=== PATIENT | male | born 1985 | race Caucasian/White ===

== ENCOUNTER 2023-09-27 07:12 | Emergency (ER) | payer SELFPAY ==
[~2023-09-27] VITALS: Ht 170.1 cm; Wt 111.1 kg
[~2023-09-27 07:12] MED LIST: Motrin,Rufen800 MG PO; Orphenadrine C100 MG PO
[2023-09-27] MEDS ORDERED: RABIES IMMUNE GLOBULIN U RABIES IMMUNE GLOBULIN U IM ONE (07:40)
[2023-09-27] MEDS ORDERED: Rabies Immune Globulin 300 UNIT/2 ML VIAL IM ONE (07:40)
[2023-09-27] MEDS ORDERED: Rabies Vaccine 1 ML VIAL IM ONE (07:40)
[2023-09-27] MEDS ORDERED: SEPTDS PO (07:41)
== END 2023-09-27 08:10 | disposition home or self-care (01) ==
LOC: ED 07:12
DX: T63.481A Toxic effect of venom of other arthropod, accidental (unintentional), initial encounter (principal); F41.9 Anxiety disorder, unspecified; Z88.0 Allergy status to penicillin; Z88.1 Allergy status to other antibiotic agents; Z87.891 Personal history of nicotine dependence; Y92.009 Unspecified place in unspecified non-institutional (private) residence as the place of occurrence of the external cause

== ENCOUNTER 2023-09-30 09:39 | Emergency (ER) | payer SELFPAY ==
[~2023-09-30] VITALS: Ht 170.1 cm; Wt 106.6 kg
[~2023-09-30 09:39] MED LIST changes: +SEPTDS PO
[2023-09-30] MEDS ORDERED: Rabies Vaccine 1 ML VIAL IM ONE (10:00)
== END 2023-09-30 10:30 | disposition home or self-care (01) ==
LOC: ED 09:39
DX: S21.259D Open bite of unspecified back wall of thorax without penetration into thoracic cavity, subsequent encounter (principal); Z23 Encounter for immunization; Z88.0 Allergy status to penicillin; Z88.1 Allergy status to other antibiotic agents; Z79.899 Other long term (current) drug therapy; Z79.2 Long term (current) use of antibiotics; W55.81XD Bitten by other mammals, subsequent encounter

== ENCOUNTER 2023-10-04 10:51 | Emergency (ER) | payer SELFPAY ==
[~2023-10-04] VITALS: Ht 170.1 cm; Wt 106.6 kg
[2023-10-04] MEDS ORDERED: Rabies Vaccine 1 ML VIAL IM ONE (11:05)
== END 2023-10-04 11:23 | disposition home or self-care (01) ==
LOC: ED 10:51
DX: Z23 Encounter for immunization (principal); Z88.0 Allergy status to penicillin; Z88.1 Allergy status to other antibiotic agents; Z98.890 Other specified postprocedural states

== ENCOUNTER 2023-10-11 15:40 | Emergency (ER) | payer SELFPAY ==
[~2023-10-11] VITALS: Ht 170.1 cm; Wt 108.4 kg
[2023-10-11] MEDS ORDERED: Rabies Vaccine 1 ML VIAL IM ONE (15:50)
== END 2023-10-11 16:18 | disposition home or self-care (01) ==
LOC: ED 15:40
DX: Z23 Encounter for immunization (principal); Z88.0 Allergy status to penicillin; Z88.1 Allergy status to other antibiotic agents